=== PATIENT | female | born 1990 | race Caucasian/White ===

== ENCOUNTER → 2020-02-09 10:53 | Outpatient (CLI) | payer OTHER, SELFPAY ==
--- NOTE | 2020-02-09 | DI.US.S_ITS ---
PROCEDURE: US OB <= 14 WEEKS FETUS INDICATIONS: SIZE AND DATING OUTSIDE/PRIOR DATING DATA: Last menstrual period (LMP): 12/02/2019. LMP-based estimated date of delivery (FRANSISCA): 09/08/2019 . First dating scan (date and location): 02/09/2020 . Estimated date of delivery (FRANSISCA) from first dating scan: 09/22/2020 . TECHNIQUE: Real-time scanning was performed of the fetus and maternal pelvic organs, with image documentation. Endovaginal scanning was also performed to better visualize the fetus and maternal ovaries. COMPARISON: None. FINDINGS: Embryo: [place]-rump length measures 14 mm corresponding to 7 weeks 5 days. Heart rate measures 140 beats per minute. Measurement variability in dating: +/- 4 weeks by LMP, +/- 7 days by mean sac diameter (use before 6 weeks gestation if crown-rump length not able to be measured), +/- 5 days by crown-rump length (up to 8 weeks 6 days gestation), +/- 7 days by crown-rump length (up to 13 weeks 6 days gestation). Maternal organs: Ovaries within normal limits . Limited images through the kidneys demonstrate no hydronephrosis. IMPRESSION: 7 week 5 day [place] IUP. Dictated by: Jayme Green RRA Interpreted: Taylor Chase MD on 02/09/2020 at 11:55 Approved by: Taylor Chase M.D. on 02/09/2020 at 12:04
== END ==
PROVIDERS: PCP Family Medicine; Referring Provider Family Medicine; Visit Provider Family Medicine
DX: Z36.87 Encounter for antenatal screening for uncertain dates (principal); Z3A.01 Less than 8 weeks gestation of pregnancy
CPT/HCPCS: 76801

== ENCOUNTER 2020-04-26 11:04 | Outpatient (CLI) | payer OTHER, SELFPAY | END 2020-04-26 12:00 | disposition home or self-care (01) | LOC: LABOR 11:33 → OB 05-03 08:54 | PROVIDERS: PCP Family Medicine; Referring Provider Family Medicine; Visit Provider Family Medicine | DX: O47.02 False labor before 37 completed weeks of gestation, second trimester (principal); O24.419 Gestational diabetes mellitus in pregnancy, unspecified control; O99.212 Obesity complicating pregnancy, second trimester; Z3A.18 18 weeks gestation of pregnancy | CPT/HCPCS: 59025; G0378; G0379 ==